=== PATIENT | male | born 1960 | race Caucasian/White ===

== ENCOUNTER 2024-06-04 00:17 | Inpatient (IN) | payer MEDICARE, SELFPAY ==
[2024-06-04] VITALS (21 sets, daily range): BP systolic 118–146; BP diastolic 78–100; PULSE 61–85; RESP 13–30; TEMP 35.7–36.9; O2SAT 78–100; BMI 31.8
--- NOTE | 2024-06-04 01:05 | EKG12_ITS ---
Test Reason : SOB Blood Pressure : / mmHG Vent. Rate : 069 BPM Atrial Rate : 069 BPM P-R Int : 152 ms QRS Dur : 092 ms QT Int : 440 ms P-R-T Axes : 002 070 -31 degrees QTc Int : 471 ms Normal sinus rhythm ST & T wave abnormality, consider inferior ischemia ST & T wave abnormality, consider anterolateral ischemia Prolonged QT Abnormal ECG Confirmed by TAZ KRAFT ([id number]), assistant film editor BARON IYER ([id number]) on 06/07/2024 8:22:11 AM Referred By: KWAME Confirmed By:TAZ KRAFT
--- NOTE | 2024-06-04 01:05 | EDS_ITS ---
HPI History of Present Illness Chief Complaint: Shortness of Breath Informant: patient Narrative Narrative: Patient has had dyspnea on exertion for couple months has been worsening he seen pulmonary doctor severely up for it, he has had a workup some of it has been at [place], he had a heart cath that did not show any acute, he had some stents placed in 2014, and tonight he was getting a sleep study as part of this workup, and during that he was sleeping and hypoxic, the microbiological laboratory technician woke him up from on oxygen and they were unable to get him above 80% on 5 L nasal cannula so he was sent here. The patient states he feels fine at rest, he has dyspnea with exe rtion without chest discomfort or syncope or palpitations or leg swelling or orthopnea. He is on no home oxygen. [facility] Medical History (Updated 06/04/24 @ 02:[address] Calros Welch MD) Pulmonary hypertension CAD (coronary artery disease) Home Medications ?Medication ?Instructions ?Recorded ?Last Taken ?Type aspirin 81 mg capsule 81 mg PO DAILY 06/04/24 Unknown History losartan 50 mg tablet 50 mg PO DAILY 06/04/24 Unknown History metformin 500 mg tablet,extended 500 mg PO DAILY 06/04/24 Unknown History release 24 hr metoprolol succinate 50 mg 50 mg PO DAILY 06/04/24 Unknown History tablet,extended release 24 hr rosuvastatin 20 mg tablet 20 mg PO DAILY 06/04/24 Unknown History sildenafil (pulm.hypertension) 20 20 mg PO TID 06/04/24 Unknown History mg tablet Allergy/AdvReac Type Severity Reaction Status Date / Time No Known Allergies Allergy Verified 06/04/24 00:22 Surgical History (Updated 06/04/24 @ 01:[address] Carlos Welch MD) Stented coronary artery Social History Smoking Status: Light Smoker (<10/day) ROS ROS ED Constitutional Constitutional ED: Denies chills or fever(s) Eyes Eyes: Denies change in vision or diplopia ENT ENT ED: Denies rhinorrhea or sore throat Cardiovascular Cardiovascular: Denies chest pain or palpitations Respiratory/Chest Respiratory/Chest: Reports dyspnea on exertion; Denies cough or dyspnea Gastrointestinal Gastrointestinal: Denies abdominal pain, diarrhea, nausea or vomiting Genitourinary Genitourinary ED: Denies dysuria or hematuria Musculoskeletal Musculoskeletal: Denies back pain or neck pain Integumentary Denies abscess or rash Neurologic Neurologic: Denies headache(s), paresthesias or weakness Psychiatric Psychiatric: Denies anxiety or suicidal thoughts EXAM Physical Exam Const Vital Signs: 06/04/24 00:18 06/04/24 00:20 06/04/24 01:20 Temperature 97.8 F Temperature Source Oral Pulse Rate 75 Respiratory Rate 30 H Respiratory Effort Non-Labored Respiratory Pattern Tachypnea Blood Pressure 140/89 H Blood Pressure Mean 106 Pulse Ox 88 94 Oxygen Delivery Method Nasal Cannula Nasal Cannula Nasal Cannula Oxygen Flow Rate (L/min) 5 5 5 06/04/24 01:20 06/04/24 01:20 06/04/24 02:00 Temperature 98.1 F 98 F Temperature Source Oral Oral Pulse Rate 85 66 Respiratory Rate 19 H 16 Respiratory Effort Respiratory Pattern Blood Pressure 127/78 H 125/83 H Blood Pressure Mean 94 97 Pulse Ox 78 95 94 Oxygen Delivery Method Room Air Nasal Cannula Nasal Cannula Oxygen Flow Rate (L/min) 5 Positive well nourished and well developed General Appearance ED: well developed and NAD HEENT Reports moist mucous membranes normocephalic and atraumatic Eyes PERRL and EOMs intact bilaterally Neck full ROM, supple and no JVD Resp normal respiratory effort and clear to auscultation bilaterally Cardio regular rate, regular rhythm and no murmurs GI non-tender and non-distended Auscultation: normoactive bowel sounds Palpation: soft Back/Spine no CVA tenderness General Back: other FROM Extremity normal to inspection General Extremety ED: Negative for edema, pulses abnormal or tenderness General Extremity: Negative for edema or pulses abnormal Neuro oriented x3, CN's II-XII intact bilaterally and no sensory deficits noted Sensorium / Orientation: awake and alert Motor Exam: strength 5/5 throughout Skin no rashes or lesions noted and no wounds MDM MDM MDM Narrative Medical decision making narrative: Patient was sent with an outpatient note that shows that he had a VQ scan that was normal perfusion April 27, CT scan showing distal pulmonary arteries enlarged and what appears to be significant fibrosis and may be some emphysematous blebs, as well as pulmonary function test with FVC 88% of predicted FEV1 89% of predicted, this was in April 2024, his proBNP was 4391. According to this, pulmonary favoring pulmonary fibrosis, and suspecting obstructive sleep apnea hence the study he was having tonight. He also had an echocardiogram in April 2024 that showed an ejection fraction of 39% and a PA estimated pressure of 86 and diastolic dysfunction. Chest x-ray shows what appear to be chronic abnormalities 2 views on my interpretation, I do not think this represents pneumonia given the history and the lack of symptoms acutely. It is possible this could be cardiogenic pulmonary edema but he does not have symptoms of that necessarily. I turned his oxygen off in order to assess for hypoxemia, he was wide-awake without dyspnea, desatted down to 79% so we put him back on 4-5 L nasal cannula. He is at 94% and stable. I do not think we need to retest him for pulmonary embolus which is already been ruled out in this case, his BNP is elevated. Discussed with hospitalist for admission. History & Record Review Additional record(s) reviewed:: Prior outpatient record (Outpatient note from 05/13/2024 see above) Lab Data Attestation: I reviewed the patient's lab results. Labs: Laboratory Results - last 24 hr 06/04/24 01:28 WBC 6.7 RBC 5.25 Hgb 16.3 Hct 48.3 MCV 92.0 MCH 31.0 MCHC 33.7 RDW Std Deviation 45.4 H RDW Coeff of Abilio 13.4 Plt Count 268 MPV 9.9 Immature Gran % (Auto) 0.300 Neut % (Auto) 60.6 Lymph % (Auto) 26.8 [place] % (Auto) 6.7 Eos % (Auto) 4.0 Baso % (Auto) 1.6 H Absolute Neuts (auto) 4.1 Absolute Lymphs (auto) 1.80 Nucleated RBC % 0 Sodium 136 Potassium 5.2 H Chloride 111 H Carbon Dioxide 19.0 L Anion Gap 6 BUN 18 Creatinine 0.90 Est GFR (MDRD) Af Amer 109 Est GFR (MDRD) Non-Af 90 BUN/Creatinine Ratio 20.0 Glucose 90 Calcium 9.0 Troponin I High Sens 19 B-Natriuretic Peptide 321.5 H Rhythm Strip Rhythm Strip: Sinus Rhythm Rate: 70 Ectopy: None EKG Initial EKG: Attestation: I personally reviewed and interpreted this EKG as follows: Interpretation: Sinus Rhythm, No Acute Injury Pattern and Inverted T-Waves (ant-sept, inferior) Prior EKG tracings: not available for review Prior: No Prior Management Discussion w/another healthcare provider: Hospitalist and PCP (Pulmonary Dr. Billingsley prior to patient's arrival) Discharge Plan Dx/Rx/DC Orders Clinical Impression: Hypoxemia, Cardiomyopathy, Pulmonary hypertension Disposition Disposition: Acute Care Hospital [facility]
[2024-06-04 01:35] LABS: Absolute Neutrophil Count 4.1 X10^3/uL (2.0-7.7); Basophil# 0.11 X10^3/uL; Basophil% 1.6 % (0-1); Eosinophil# 0.27 X10^3/uL; Hematocrit 48.3 % (40-54); Hemoglobin 16.3 g/dL (13.0-16.5); Lymphocyte % 26.8 % (19-41); Mean Corp Hgb Conc 33.7 g/dL (32-36); Mean Platelet Vol. 9.9 fl (6.2-12.0); Monocyte# 0.45 X10^3/uL; Monocyte% 6.7 % (0-10); NRBC Flagged by Analyzer 0 % (0-5); Neutrophil # 4.06 X10^3/uL (2.7-7.7); Neutrophil % 60.6 % (47-70); Platelet Count 268 K/mm3 (150-450); RBC Distribution Width CV 13.4 % (11.6-14.6); RBC Distribution Width SD 45.4 fl (35.1-43.9); Red Blood Count 5.25 M/mm3 (4.6-6.2); White Blood Count 6.7 K/mm3 (4.4-11.0)
--- NOTE | 2024-06-04 01:50 | RAD_ITS ---
EXAM: XR CHEST, 2 VIEWS CLINICAL INDICATION: sob TECHNIQUE: Frontal and lateral views of the chest. COMPARISON: No relevant prior studies available. FINDINGS: LUNGS AND PLEURAL SPACES: Patchy bilateral airspace disease. No pneumothorax. No effusion. HEART: Unremarkable. Cardiac silhouette not enlarged. MEDIASTINUM: Central airways and mediastinal contour are unremarkable. BONES/JOINTS: Degenerative changes of the spine. No acute fracture. SOFT TISSUES: Unremarkable. RAD/Chest PA and Lateral IMPRESSION: Patchy bilateral airspace disease. Findings may indicate pneumonia. Electronically Signed: Shola Kyle MD at 3:19 EDT ,
[2024-06-04 01:57] LABS: BNP,B-Type NATRIURETIC PEPTIDE 321.5 pg/mL (0-100)
[2024-06-04 02:00] LABS: Anion Gap 6 (5-15); BUN 18 mg/dL (7-18); Chloride 111 mmol/L (98-107); EST Glomerular Filtration Rate 90 mL/min (>60); Est Glom Filt Rate - Afr Amer 109 mL/min (>60); Glucose 90 mg/dL (74-106); Potassium 5.2 mmol/L (3.5-5.1); Sodium Level 136 mmol/L (136-145); Troponin-I HS 19 pg/mL (3.0-78.0)
--- NOTE | 2024-06-04 02:47 | PCM.HP.STD ---
[facility] - General General Date of Admission: 06/04/24 Date of Service: 06/04/24 Chief Complaint: Severe SOB and Hypoxia during Sleep Study. HPI Narrative MISAEL CERVANTES, is a 64 M with a past medical history of essential hypertension, hyperlipidemia, DM-2; of unknown control of metformin, history of tobacco abuse, CAD; s/p stents (2014), pulmonary hypertension; on sildenafil TID and history of suspected pulmonary fibrosis followed by Dr. Ohara of pulmonology with an unremarkable ventilation/perfusion scan done on April 27, [address] scan of the chest that revealed distal pulmonary artery enlargement with significant fibrosis and what may be some emphysematous blebs as well as pulmonary function test with FVC 88% of predicted and FEV-1 89% of predicted with a recent echocardiogram that revealed LVEF ~39% and the pulmonary artery estimated pressure of 86 mmHg with diastolic dysfunction (all in April 2024) who was undergoing a sleep study when he was noted to have an oxygen saturation in the ~79% range in spite of being on 5 L nasal cannula so he was emergently sent into the [facility] ER for further evaluation treatment. Mr. Cervantes reports his symptoms began ~2 to 3 months prior to admission as he was undergoing extensive workup for his progressively worsening dyspnea on exertion - with most of his workup apparently done at [place]. He states that he feels fine at rest but then quickly develops dyspnea on exertion without chest discomfort, syncope, palpitations or lower extremity edema. He denies being on home oxygen but he does admit to continued light tobacco abuse with patient smoking ~1/2 pack/day. He also admits to significantly increased free-water intake of the past 3-4 days due to the heat with a corresponding worsening of his MIRANDA. He is now saturating at ~95% on 5 L nasal cannula. In the ER he was noted to have an elevated BNP of 321.5 pg/mL present on admission consistent with AE of chronic systolic CHF; with LVEF ~39% with corresponding clinical evidence of acute respiratory insufficiency likely triggered at least in part by orthopnea during sleep study with mild hyperkalemia of 5.2 mmol/L present on admission in the setting of ongoing tobacco abuse and he was then admitted to the PCU for ongoing care for his stay that is expected to extend beyond 2 midnights. [facility] Medical History (Updated 06/04/24 @ 03:[address] Jon Rojas DO) Pulmonary hypertension CAD (coronary artery disease) Home Medications ?Medication ?Instructions ?Recorded ?Last Taken ?Type aspirin 81 mg capsule 81 mg PO DAILY 06/04/24 Unknown History losartan 50 mg tablet 50 mg PO DAILY 06/04/24 Unknown History metformin 500 mg tablet,extended 500 mg PO DAILY 06/04/24 Unknown History release 24 hr metoprolol succinate 50 mg 50 mg PO DAILY 06/04/24 Unknown History tablet,extended release 24 hr rosuvastatin 20 mg tablet 20 mg PO DAILY 06/04/24 Unknown History sildenafil (pulm.hypertension) 20 20 mg PO TID 06/04/24 Unknown History mg tablet Allergy/AdvReac Type Severity Reaction Status Date / Time No Known Allergies Allergy Verified 06/04/24 00:22 Surgical History (Updated 06/04/24 @ 03:[address] Jon Rojas DO) Stented coronary artery Social History Smoking Status: Light Smoker (<10/day) ROS ROS Narrative Review of Systems: Constitutional: Patient denies fever, chills, weight loss/gain. Eyes: Patient denies changes in vision or discharge from eyes. ENT: Patient denies runny nose, sore throat or ear pain CV: Patient denies chest pain, palpitations or heart racing. Resp: Patient admits to dyspnea on exertion that is progressively worsening over the past few months as per HPI. He denies cough. GI: Patient denies abdominal pain, nausea, vomiting, diarrhea or constipation. : Patient denies dysuria, hematuria urinary hesitancy/frequency. MSK: Patient denies neck pain or back pain. Skin: Patient denies rash, abscess or jaundice. Psych: Patient denies symptoms of uncontrolled depression or anxiety. Neuro: Patient denies headache, paresthesias or focal neurologic deficits. Allergy: Patient denies lip swelling, tongue swelling or urticaria. Hematology: Patient denies easy bleeding or easy bruisability. Endocrinology: Patient denies polyuria, polydipsia or polyphagia. 14 point review of systems negative except for positives noted in HPI. Vital Signs Vital Signs Vital Signs: 06/04/24 00:18 06/04/24 00:20 06/04/24 01:20 Temperature 97.8 F Temperature Source Oral Pulse Rate 75 Respiratory Rate 30 H Respiratory Effort Non-Labored Respiratory Pattern Tachypnea Blood Pressure 140/89 H Blood Pressure Mean 106 Pulse Ox 88 94 Oxygen Delivery Method Nasal Cannula Nasal Cannula Nasal Cannula Oxygen Flow Rate (L/min) 5 5 5 06/04/24 01:20 06/04/24 01:20 06/04/24 02:00 Temperature 98.1 F 98 F Temperature Source Oral Oral Pulse Rate 85 66 Respiratory Rate 19 H 16 Respiratory Effort Respiratory Pattern Blood Pressure 127/78 H 125/83 H Blood Pressure Mean 94 97 Pulse Ox 78 95 94 Oxygen Delivery Method Room Air Nasal Cannula Nasal Cannula Oxygen Flow Rate (L/min) 5 Physical Exam Const alert, oriented x3, no apparent distress and average body habitus General Appearance: cooperative HEENT normocephalic, head/scalp atraumatic, hearing grossly normal bilaterally and moist oral mucous membranes Eyes PERRL and EOMs intact bilaterally Neck no lymphadenopathy and supple Resp normal respiratory effort, no retractions, no use of accessory muscles and clear to auscultation bilaterally Cardio regular rate and regular rhythm GI normal to inspection, nondistended, normoactive bowel sounds, soft to palpation, non-tender and non-distended Extremity normal to inspection, full ROM and no clubbing, cyanosis or edema Skin Skin Narrative: Patient has evidence of rash, abscess or jaundice. Neuro oriented x3, CN's II-XII intact bilaterally, moves all extremities and no focal motor deficits Sensorium / Orientation: awake, alert, oriented to person, oriented to place and oriented to time Speech: speech normal Motor Exam: strength 5/5 throughout Psych affect normal Results Medical Records Data Attestation: I reviewed the patient's medical records Lab / Micro Data Attestation: I reviewed the patient's lab results. 06/04/24 01:28 06/04/24 01:28 Labs: Laboratory Results - last 24 hr 06/04/24 01:28: WBC 6.7, RBC 5.25, Hgb 16.3, Hct 48.3, MCV 92.0, MCH 31.0, MCHC 33.7, RDW Std Deviation 45.4 H, RDW Coeff of Abilio 13.4, Plt Count 268, MPV 9.9, Immature Gran % (Auto) 0.300, Neut % (Auto) 60.6, Lymph % (Auto) 26.8, [place] % (Auto) 6.7, Eos % (Auto) 4.0, Baso % (Auto) 1.6 H, Absolute Neuts (auto) 4.1, Absolute Lymphs (auto) 1.80, Nucleated RBC % 0, Sodium 136, Potassium 5.2 H, Chloride 111 H, Carbon Dioxide 19.0 L, Anion Gap 6, BUN 18, Creatinine 0.90, Est GFR (MDRD) Af Amer 109, Est GFR (MDRD) Non-Af 90, BUN/Creatinine Ratio 20.0, Glucose 90, Calcium 9.0, Troponin I High Sens 19, B-Natriuretic Peptide 321.5 H Rhythm Strip Rhythm Strip: Sinus Rhythm Rate: 70 Ectopy: None Imaging [facility] Imaging Services [address] [place], [place] [id number] Chest PA and Lateral MR#: [id number] Acct: [id number] Name: MISAEL CERVANTES Rep #: [id number] : 1960 M 64 From: Shola Kyle MD PCP: AURE Ortega Status: REG ER Study: Chest PA and Lateral Date of Exam: 06/04/24 Exam# [id number] Ordering Dr: Carlos Welch MD EXAM: XR CHEST, 2 VIEWS CLINICAL INDICATION: sob TECHNIQUE: Frontal and lateral views of the chest. COMPARISON: No relevant prior studies available. FINDINGS: LUNGS AND PLEURAL SPACES: Patchy bilateral airspace disease. No pneumothorax. No effusion. HEART: Unremarkable. Cardiac silhouette not enlarged. MEDIASTINUM: Central airways and mediastinal contour are unremarkable. BONES/JOINTS: Degenerative changes of the spine. No acute fracture. SOFT TISSUES: Unremarkable. RAD/Chest PA and Lateral IMPRESSION: Patchy bilateral airspace disease. Findings may indicate pneumonia. Electronically Signed: Shola Kyle MD at 3:19 EDT , CC: AURE [place]; Dr. Carlos Welch MD ~ Tile Sorter: Signed Assessment & Plan Assessment/Plan (1) Acute exacerbation of chronic heart failure: (2) Pulmonary hypertension: (3) Respiratory insufficiency: (4) Hypoxemia: (5) Cardiomyopathy: QUALIFIERS: Cardiomyopathy type: unspecified Qualified Code(s): I42.9 - Cardiomyopathy, unspecified (6) CAD (coronary artery disease): QUALIFIERS: Associated angina: without angina Coronary Disease-Associated Artery/Lesion type: [place] artery [place] vs. transplanted heart: [place] heart Qualified Code(s): I25.10 - Atherosclerotic heart disease of [place] coronary artery without angina pectoris (7) Stented coronary artery: PLAN: Plan 1. AE of chronic systolic and diastolic CHF; with LVEF ~39% with an elevated BNP of 321.5 pg/mL present on admission likely due to orthopnea during sleep study triggered by recent increased free water intake - Admit to PCU. Start Lasix 40 mg IV daily plus supplemental potassium and magnesium. Continue losartan and metoprolol as previous. Serial troponin. Check echocardiogram to evaluate LVEF. Fluid restrict to ~1.5 L/day. 2. Acute respiratory insufficiency due to #1 in the setting of ongoing tobacco abuse complicating #1 - Continue supplemental oxygen for now and wean as tolerated. Tobacco cessation will be strongly encouraged with nicotine patch offered to control cravings. Patient may need to be discharged on supplemental oxygen. 3. Mild hyperkalemia of 5.2 mmol/L present on admission - Patient will be treated with IV Lasix for #1. Recheck level in a.m. to ensure improvement. 4. Pulmonary hypertension; on sildenafil TID and history of suspected pulmonary fibrosis followed by Dr. Ohara of pulmonology with an unremarkable ventilation/perfusion scan done on April 27, [address] scan of the chest that revealed distal pulmonary artery enlargement with significant fibrosis and what may be some emphysematous blebs as well as pulmonary function test with FVC 88% of predicted and FEV-1 89% of predicted with a recent echocardiogram that revealed LVEF ~39% and the pulmonary artery estimated pressure of 86 mmHg with diastolic dysfunction (all in April 2024) compounding #1 - #3 - Noted. 5. Essential hypertension - Continue home regimen as previous plus give IV hydralazine as needed for systolic blood pressure greater than 160 mmHg. 6. Hyperlipidemia - Resume statin as previous. 7. DM-2; of unknown control of metformin - ADA diet. FSBS q. AC/HS plus SSI. Check HgbA1c to objectively evaluate quality of diabetic control. 8. CAD; s/p stents (2014) - Noted. Resume BASA and statin as previous. 9. DVT prophylaxis - Lovenox 40 mg sq daily plus SCD's. Total time: Approximately 55 minutes. Charges/Coding Visit Charges Inpatient E&M: 66838 Init Hosp L2
--- NOTE | 2024-06-04 03:21 | ECHOD_ITS ---
Reason For Study: CHF Procedure This was a 2D Doppler, Color Flow transthoracic echocardiogram. Exam performed portable in patient room. RV strain done. Left Ventricle Normal left ventricle. The estimated ejection fraction is 55-60 %. Right Ventricle Moderately dilated right ventricle. Moderately decreased right ventricular systolic function. Atria Normal left atrium. The right atrium is moderately enlarged. Mitral Valve The mitral valve is structurally normal. No prolapse or stenosis seen. No mitral valve insufficiency. Tricuspid Valve Normal tricuspid valve. Mild tricuspid valve insufficiency. Aortic Valve Trisinus/trileaflet aortic valve. No aortic valve insufficiency. Pulmonic Valve The pulmonic valve is not well visualized. Great Vessels Normal aortic root. Pericardium/Pleural No pericardial effusion. MMode/2D Measurements & Calculations LVIDd: 4.6 cm IVSd: 0.94 cm Ao root diam: 3.5 cm LVIDs: 3.2 cm LVPWd: 0.89 cm LA dimension: 4.3 cm RVDd: 5.1 cm FS: 29.0 % LAV(MOD-bp): 61.8 ml LVAd ap4: 29.1 cm2 SV(MOD-sp4): 61.6 ml LAV(MOD-bp) Indexed: 27.1 ml/m2 LVLd ap4: 8.1 cm LAV(MOD-sp2): 60.6 ml EDV(MOD-sp4): 90.7 ml LAV(MOD-sp4): 52.1 ml EDV(sp4-el): 88.6 ml LVAs ap4: 15.2 cm2 LVLs ap4: 6.7 cm ESV(MOD-sp4): 29.1 ml ESV(sp4-el): 29.4 ml EF(MOD-sp4): 67.9 % EF(sp4-el): 66.8 % SV(sp4-el): 59.2 ml LA A4 area: 20.9 cm2 RA A4 area: 16.7 cm2 TAPSE: 1.7 cm Time Measurements MV dec time: 0.38 sec Doppler Measurements & Calculations MV E max marvin: 63.0 cm/sec Lat Peak E' Marvin: 9.8 cm/sec Med Peak E' Marvin: 5.8 cm/sec MV A max marvin: 89.3 cm/sec E/E' lat: 6.4 E/E' med: 10.9 MV E/A: 0.71 MV V2 max: 94.6 cm/sec MV P1/2t max marvin: 69.6 cm/sec Ao V2 max: 153.1 cm/sec MV max P.6 mmHg MV P1/2t: 123.6 msec Ao max P.4 mmHg MV V2 mean: 49.9 cm/sec MV dec slope: 165.0 cm/sec2 Ao V2 mean: 105.3 cm/sec MV mean P.2 mmHg Ao mean P.0 mmHg MV V2 VTI: 28.7 cm MVA(P1/2t): 1.8 cm2 Ao V2 VTI: 25.6 cm AV (velocity ratio): 0.59 LV V1 max: 92.8 cm/sec PA V2 max: 75.9 cm/sec TR max marvin: 412.8 cm/sec LV V1 max P.5 mmHg TR max P.2 mmHg LV V1 mean P.9 mmHg LV V1 mean: 65.0 cm/sec LV V1 VTI: 15.2 cm ECHO/Echo Complete Interpretation Summary The estimated ejection fraction is 55-60 %. Normal LV systolic function Moderately enlarged RV Mild TR Grade 2 diastolic dysfunction No prior echocardiogram to compare. Ordering Physician: Jon Rojas Performed By: Ian Landeros RCS
[2024-06-04 03:53] LABS: Allen Test Positive; Base Excess -6 mmol/L (-2 to +2); Bicarbonate 17.9 mmol/L (22-26); Blood Gas Specimen Type ART; Mode Not entered; O2 Delivery Device Not entered; PO2 43 mmHG (75-100); SITE R Radial; SO2 82 % (95-99); Total Carbon Dioxide 19 mmol/L; pCO2 25.6 mmHg (35-45); pH 7.45 (7.35-7.45)
[2024-06-04] MEDS: SILDENAFIL CITRATE 20 MG TABLET PO ×3 (05:48→21:35)
[2024-06-04 06:56] LABS: Troponin-I HS 16 pg/mL (3.0-78.0)
[2024-06-04 07:18] LABS: Phosphorus 3.7 mg/dL (2.5-4.9)
[2024-06-04] MEDS: Losartan Potassium 50 MG Tablet PO (09:34)
[2024-06-04] MEDS: Metoprolol(XL)Succ 50 MG Tablet PO (09:34)
[2024-06-04] MEDS: Magnesium Chloride 64 MG Delay Rel.Tablet 128 MG PO ×2 (09:34→21:35)
[2024-06-04] MEDS: Furosemide 40 MG/4 ML Vial IV ×2 (09:35→16:44)
[2024-06-04] MEDS: Aspirin 81 MG TAB.CHEW PO (09:35)
[2024-06-04] MEDS: Enoxaparin 40 MG/0.4 ML Syringe SC (09:44)
[2024-06-04] MEDS: 0.9% Saline Lock 10 ML Syringe IV ×2 (09:44→16:45)
--- NOTE | 2024-06-04 09:55 | PN.HOSP_ITS ---
Reason for Visit Reason for Visit: Diagnoses Atherosclerotic heart disease of [place] coronary artery without angina pectoris (06/04/24) Pulmonary hypertension, unspecified (06/04/24) Cardiomyopathy, unspecified (06/04/24) Heart failure, unspecified (06/04/24) Other abnormalities of breathing (06/04/24) Hypoxemia (06/04/24) Presence of coronary angioplasty implant and graft (06/04/24) Subjective Subjective Breathing well. Denies LE edema. Objective Data Objective Data Vital Signs: Vital Signs Temp Pulse Resp BP Pulse Ox O2 Del Method O2 Flow Rate 36.5 C L 61 18 123/91 H 93 Nasal Cannula 5 06/04/24 09:31 06/04/24 09:34 06/04/24 09:31 06/04/24 09:31 06/04/24 09:31 06/04/24 09:31 06/04/24 09:31 Oxygen Flow Rate (L/min) 5 Oxygen Delivery Method Nasal Cannula Weight: 106.6 kg Body Mass Index (BMI) 31.8 Lab / Micro Data 06/04/24 01:28 06/04/24 01:28 Labs: Laboratory Results - last 24 hr 06/04/24 01:28: WBC 6.7, RBC 5.25, Hgb 16.3, Hct 48.3, MCV 92.0, MCH 31.0, MCHC 33.7, RDW Std Deviation 45.4 H, RDW Coeff of Abilio 13.4, Plt Count 268, MPV 9.9, Immature Gran % (Auto) 0.300, Neut % (Auto) 60.6, Lymph % (Auto) 26.8, [place] % (Auto) 6.7, Eos % (Auto) 4.0, Baso % (Auto) 1.6 H, Absolute Neuts (auto) 4.1, Absolute Lymphs (auto) 1.80, Nucleated RBC % 0, Sodium 136, Potassium 5.2 H, C hloride 111 H, Carbon Dioxide 19.0 L, Anion Gap 6, BUN 18, Creatinine 0.90, Est GFR (MDRD) Af Amer 109, Est GFR (MDRD) Non-Af 90, BUN/Creatinine Ratio 20.0, Glucose 90, Calcium 9.0, Troponin I High Sens 19, B-Natriuretic Peptide 321.5 H 06/04/24 05:54: Phosphorus 3.7, Magnesium 2.0, Troponin I High Sens 16, TSH 1.720 ABG Data ABG results: ABG 06/04/24 03:48 Specimen Type ART Sample Site R Radial pH 7.45 Bicarbonate Actual 17.9 L Total CO2 19 Base Excess -6 L O2 Saturation 82 L O2 % 21.0 ABG pCO2 25.6 L ABG pO2 43 L [place] Test Positive O2 Delivery Device Not entered Vent Mode Not entered Radiography Diagnostic Testing: Radiology Impression Chest X-Ray 06/04/24 01:50 IMPRESSION: Patchy bilateral airspace disease. Findings may indicate pneumonia. Electronically Signed: Shola Kyle MD at 3:19 EDT , Rhythm Strip Rhythm Strip: Sinus Rhythm Rate: 70 Ectopy: None Physical Exam Const alert and no apparent distress HEENT head/scalp atraumatic and moist oral mucous membranes Resp normal respiratory effort and no retractions Resp Narrative: bibasilar crakcles. Cardio regular rate, regular rhythm, S1 normal heart sound and S2 normal heart sound GI normal to inspection, nondistended, normoactive bowel sounds, soft to palpation, non-tender and non-distended Extremity normal to inspection, full ROM and no clubbing, cyanosis or edema Neuro Sensorium / Orientation: awake and alert Assessment & Plan Assessment/Plan (1) Acute exacerbation of chronic heart failure: (2) Pulmonary hypertension: (3) Respiratory insufficiency: (4) Hypoxemia: (5) Cardiomyopathy: QUALIFIERS: Cardiomyopathy type: unspecified Qualified Code(s): I 42.9 - Cardiomyopathy, unspecified (6) CAD (coronary artery disease): QUALIFIERS: Associated angina: without angina Coronary Disease- Associated Artery/Lesion type: [place] artery [place] vs. transplanted heart: n ative heart Qualified Code(s): I25.10 - Atherosclerotic heart disease of [place] coronary artery without angina pectoris (7) Stented coronary artery: PLAN: Plan Acute on chronic HFrEF * Chest x-ray shows pulmonary vascular congestion, though the report mentions infiltrate. With an elevated BNP of 321.5 normal white count suspect more due to heart failure rather than underlying infectious process. * Continue with IV furosemide 40 mg twice daily. Continue with losartan and metoprolol succinate. Fluid restrict 1.5 L/day * Complicated by group 2 or 3 pulmonary hypertension. Continue with sildenafil. Chronic conditions * Group 2 or 3 pulmonary hypertension; on sildenafil TID patient sees pulmonary for pulmonary fibrosis. Patient require follow-up as outpatient. * Essential hypertension - Continue home regimen as previous plus give IV hydralazine as needed for systolic blood pressure greater than 160 mmHg. * Hyperlipidemia - Resume statin * DM-2; of unknown control of metformin - ADA diet. FSBS q. AC/HS plus SSI. * CAD; s/p stents (2014) - Noted. Resume BASA and statin as previous. DVT prophylaxis - Lovenox 40 mg sq daily plus SCD's. Wean oxygen as tolerated. Charges/Coding Procedures Hospitalists Procedures: Other Procedure - See Report (Nonbillable rounding as patient was admitted after midnight.)
--- NOTE | 2024-06-04 12:15 | CASEMGMT ---
SARANYA GEE Face to Face with patient for initial transition planning/care coordination assessment. RN CM introduced self and role at [facility]. Patient lying in bed, alert and oriented, son and significant other at bedside. Patient willing to participate in assessment and is able to answer all questions appropriately. Care providers, pharmacy, and demographics verified. Strata: 1 PCP: Timo CAMPBELL Specialists: Julián, slp teacher; Jose Cruz, individualized education plan aide Preferred Pharmacy: [facility] Insurance: [facility] Prescription Benefit: yes Living Will/HPOA: none LNOK: son, significant other Living Arrangements: Patient lives with significant other in a single story home with 3 steps to enter. Patient is independent at home. Transportation: self, significant other DME/HHC: No DME in the home. No previous HHC or SNF. Patient currently on oxygen, will monitor for home oxygen at discharge. DME agencies reviewed with patient and prefers [employer] for DME. Green sheet placed on chart for possible home oxygen Patient wishes to discharge home, denies need for home health at this time. Patient states he has no further needs or concerns at this time. CM to follow for discharge planning needs that may arise. Disposition Plan: Patient to discharge home with family support and follow-up plans in place. Monitor for home oxygen. Luz BRADLEY, RN, CM
[2024-06-04] MEDS: Atorvastatin Calcium 40 MG Tablet PO (21:35)
--- NOTE | 2024-06-04 21:48 | CPS ---
Patient has Reynaudryan, use ear lobe for accurate SpO2 reading
[2024-06-05 03:15] VITALS: BP 95/70; PULSE 64; RESP 18; TEMP 36.6; O2SAT 94
[2024-06-05 03:59] VITALS: BMI 31.7
[2024-06-05 04:57] LABS: Absolute Lymphocyte Count 1.67 X10^3/uL (0.83-4.51); Absolute Neutrophil Count 4.6 X10^3/uL (2.0-7.7); Basophil# 0.15 X10^3/uL; Eosinophil# 0.34 X10^3/uL; Eosinophils% 4.6 % (0-5); Hematocrit 51.7 % (40-54); Hemoglobin 17.1 g/dL (13.0-16.5); Lymphocyte # 1.67 X10^3/ul (0.83-4.51); Lymphocyte % 22.7 % (19-41); Mean Corp Hgb Conc 33.1 g/dL (32-36); Mean Corpuscular Hgb 30.8 pg (27.0-32.0); Mean Platelet Vol. 9.7 fl (6.2-12.0); Monocyte# 0.57 X10^3/uL; Monocyte% 7.7 % (0-10); NRBC Flagged by Analyzer 0 % (0-5); Neutrophil % 62.6 % (47-70); Platelet Count 259 K/mm3 (150-450); RBC Distribution Width CV 13.5 % (11.6-14.6); RBC Distribution Width SD 45.7 fl (35.1-43.9); Red Blood Count 5.56 M/mm3 (4.6-6.2); White Blood Count 7.4 K/mm3 (4.4-11.0)
[2024-06-05 05:22] LABS: ALB/GLOB Ratio 0.6 RATIO (0.9-2.4); AST(SGOT) 20 U/L (15-37); Alanine Aminotransfer ALT/SGPT 15 U/L (16-61); Albumin, Serum 3.3 g/dL (3.2-5.0); Alkaline Phosphatase 67 U/L (45-117); Anion Gap 9 (5-15); BUN 21 mg/dL (7-18); BUN/Creat Ratio 21.1 RATIO (10-20); Calcium,Total 9.9 mg/dL (8.5-10.1); Chloride 106 mmol/L (98-107); Creatinine, Serum 0.99 mg/dL (0.70-1.30); EST Glomerular Filtration Rate 80 mL/min (>60); Est Glom Filt Rate - Afr Amer 97 mL/min (>60); Estimated Creatinine Clearance 93.69 ml/min; Globulin 5.4 g/dL (2.2-4.2); Glucose 136 mg/dL (74-106); Potassium 3.6 mmol/L (3.5-5.1); Protein, Total 8.7 g/dL (6.4-8.2); Sodium Level 138 mmol/L (136-145)
--- NOTE | 2024-06-05 05:45 | RAD_ITS ---
INDICATION: AE CHF. EXAMINATION/TECHNIQUE: X-RAY - XR Chest 1 View COMPARISON: Prior study dated: 06/04/2024 FINDINGS: LINES/DEVICES: None. LUNGS: Bilateral infiltrates/edema are again seen essentially unchanged since prior exam. No evidence of pleural effusions. MEDIASTINUM AND CARDIOVASCULAR STRUCTURES: Cardiac silhouette not enlarged. Central airways and mediastinal contour are unremarkable. BONES AND SOFT TISSUES: Unremarkable. RAD/Chest 1 View (Portable) IMPRESSION: No significant change Electronically Signed: Nickolas Rojas MD at 8:39 EDT ,
[2024-06-05] MEDS: SILDENAFIL CITRATE 20 MG TABLET PO (06:09)
[2024-06-05 09:02] VITALS: BP 119/86; PULSE 67; RESP 20; TEMP 36.8; O2SAT 100
[2024-06-05] MEDS: Aspirin 81 MG TAB.CHEW PO (09:06)
[2024-06-05] MEDS: Magnesium Chloride 64 MG Delay Rel.Tablet 128 MG PO (09:07)
[2024-06-05 09:08] VITALS: PULSE 67
[2024-06-05] MEDS: Metoprolol(XL)Succ 50 MG Tablet PO (09:08)
[2024-06-05] MEDS: Losartan Potassium 50 MG Tablet PO (09:08)
[2024-06-05] MEDS: Furosemide 40 MG/4 ML Vial IV (09:09)
[2024-06-05] MEDS: Enoxaparin 40 MG/0.4 ML Syringe SC (09:09)
--- NOTE | 2024-06-05 09:23 | PCM.PN.HOSP ---
Reason for Visit Reason for Visit: Diagnoses Atherosclerotic heart disease of [place] coronary artery without angina pectoris (06/04/24) Pulmonary hypertension, unspecified (06/04/24) Cardiomyopathy, unspecified (06/04/24) Heart failure, unspecified (06/04/24) Other abnormalities of breathing (06/04/24) Hypoxemia (06/04/24) Presence of coronary angioplasty implant and graft (06/04/24) Subjective Subjective Breathing well. Noted that his oxygen dropped with activity today. Stated that he recovered quickly. Objective Data Objective Data Vital Signs: Vital Signs Temp Pulse Resp BP Pulse Ox O2 Del Method O2 Flow Rate 36.8 C 67 20 H 119/86 H 100 Nasal Cannula 2 06/05/24 09:02 06/05/24 09:08 06/05/24 09:02 06/05/24 09:02 06/05/24 09:02 06/05/24 09:02 06/05/24 09:02 FiO2 2 06/04/24 21:16 Oxygen Flow Rate (L/min) 2 Oxygen Delivery Method Nasal Cannula Weight: 106.2 kg Body Mass Index (BMI) 31.7 Intake & Output: Intake and Output for Last 24 Hours 06/03/24 06/04/24 06/05/24 23:59 23:59 23:59 Intake Total 920 / 920 Output Total 2450 / 2450 0 / 0 Balance -1530 / -1530 0 / 0 Lab / Micro Data 06/05/24 04:43 06/05/24 04:43 Labs: Laboratory Results - last 24 hr 06/05/24 04:43: WBC 7.4, RBC 5.56, Hgb 17.1 H, Hct 51.7, MCV 93.0, MCH 30.8, MCHC 33.1, RDW Std Deviation 45.7 H, RDW Coeff of Abilio 13.5, Plt Count 259, MPV 9.7, Immature Gran % (Auto) 0.400, Neut % (Auto) 62.6, Lymph % (Auto) 22.7, [place] % (Auto) 7.7, Eos % (Auto) 4.6, Baso % (Auto) 2.0 H, Absolute Neuts (auto) 4.6, Absolute Lymphs (auto) 1.67, Nucleated RBC % 0, Sodium 138, Potassium 3.6, Chloride 106, Carbon Dioxide 23.0, Anion Gap 9, BUN 21 H, Creatinine 0.99, Estim Creat Clear Calc 93.69, Est GFR (MDRD) Af Amer 97, Est GFR (MDRD) Non-Af 80, BUN/Creatinine Ratio 21.1 H, Glucose 136 H, Calcium 9.9, Total Bilirubin 1.00, AST 20, ALT 15 L, Alkaline Phosphatase 67, Total Protein 8.7 H, Albumin 3.3, Globulin 5.4 H, Albumin/Globulin Ratio 0.6 L Radiography Diagnostic Testing: Radiology Impression Echocardiogram 06/04/24 03:21 Interpretation Summary The estimated ejection fraction is 55-60 %. Normal LV systolic function Moderately enlarged RV Mild TR Grade 2 diastolic dysfunction No prior echocardiogram to compare. Ordering Physician: Jon Rojas Performed By: Ian Landeros RCS Chest X-Ray 06/05/24 05:45 IMPRESSION: No significant change Electronically Signed: Nickolas Rojas MD at 8:39 EDT Reading Location ID and State: [address] [place] [address] Tel , Service support , Rhythm Strip Rhythm Strip: Sinus Rhythm Rate: 70 Ectopy: None Physical Exam Const alert and no apparent distress HEENT head/scalp atraumatic and moist oral mucous membranes Resp normal respiratory effort and no retractions Cardio regular rate, regular rhythm, S1 normal heart sound and S2 normal heart sound GI normal to inspection, nondistended, normoactive bowel sounds, soft to palpation, non-tender and non-distended Neuro Sensorium / Orientation: awake Assessment & Plan Assessment/Plan (1) Acute exacerbation of chronic heart failure: (2) Pulmonary hypertension: (3) Respiratory insufficiency: (4) Hypoxemia: (5) Cardiomyopathy: QUALIFIERS: Cardiomyopathy type: unspecified Qualified Code(s): I42.9 - Cardiomyopathy, unspecified (6) CAD (coronary artery disease): QUALIFIERS: Associated angina: without angina Coronary Disease-Associated Artery/Lesion type: [place] artery [place] vs. transplanted heart: [place] heart Qualified Code(s): I25.10 - Atherosclerotic heart disease of [place] coronary artery without angina pectoris (7) Stented coronary artery: PLAN: Plan Acute on chronic HFrEF Chest x-ray shows pulmonary vascular congestion, though the report mentions infiltrate. With an elevated BNP of 321.5 normal white count suspect more due to heart failure rather than underlying infectious process. Continue with IV furosemide 40 mg twice daily. Continue with losartan and metoprolol succinate. Fluid restrict 1.5 L/day Complicated by group 2 or 3 pulmonary hypertension. Continue with sildenafil. Will discharge with 40 mg grams of furosemide daily. Patient will require oxygen with activity. Patient dropped down to 84% with activity on room air. He did improve with oxygen. Patient require 4 L of oxygen with activity. Oxygen testing reviewed and patient is ambulatory in home and in the community and requires home oxygen with portability. Chronic conditions Group 2 or 3 pulmonary hypertension; on sildenafil TID patient sees pulmonary for pulmonary fibrosis. Patient will require routine follow-up as outpatient. Follow up with Dr. Billingsley. Essential hypertension - Continue home regimen as previous plus give IV hydralazine as needed for systolic blood pressure greater than 160 mmHg. Hyperlipidemia - Resume statin DM-2; of unknown control of metformin - ADA diet. FSBS q. AC/HS plus SSI. CAD; s/p stents (2014) - Noted. Resume BASA and statin as previous. DVT prophylaxis - Lovenox 40 mg sq daily plus SCD's. Discussed with the patient's at bedside.
[2024-06-05 12:40] VITALS: O2SAT 84; O2SAT 86; O2SAT 89; O2SAT 98
--- NOTE | 2024-06-05 12:53 | DS.PCM_ITS ---
Providers Date of Admission: 06/04/24 Primary Care Physician: AURE Ortega Reason For Visit: AE OF CHRONIC SYSTOLIC & DIASTOLIC CHF & RESP Diagnosis Discharge Diagnosis (1) Acute exacerbation of chronic heart failure: Status: Acute Code(s): I50.9 - Heart failure, unspecified (2) Pulmonary hypertension: Status: Acute Code(s): I27.20 - Pulmonary hypertension, unspecified (3) Respiratory insufficiency: Status: Acute Code(s): R06.89 - Other abnormalities of breathing (4) Hypoxemia: Status: Acute Code(s): R09.02 - Hypoxemia (5) Cardiomyopathy: Status: Acute Code(s): I42.9 - Cardiomyopathy, unspecified Qualifiers: Cardiomyopathy type: unspecified Qualified Code(s): I42.9 - Cardiomyopathy, unspecified (6) CAD (coronary artery disease): Status: Acute Code(s): I25.10 - Atherosclerotic heart disease of [place] coronary artery without angina pectoris Qualifiers: Coronary Disease-Associated Artery/Lesion type: [place] artery [place] vs. transplanted heart: [place] heart Associated angina: without angina Q ualified Code(s): I25.10 - Atherosclerotic heart disease of [place] coronary artery without angina pectoris (7) Stented coronary artery: Status: Acute Code(s): Z95.5 - Presence of coronary angioplasty implant and graft Plan Acute on chronic HFrEF * Chest x-ray shows pulmonary vascular congestion, though the report mentions infiltrate. With an elevated BNP of 321.5 normal white count suspect more due to heart failure rather than underlying infectious process. * Continue with IV furosemide 40 mg twice daily. Continue with losartan and metoprolol succinate. Fluid restrict 1.5 L/day * Complicated by group 2 or 3 pulmonary hypertension. Continue with sildenafil. * Will discharge with 40 mg grams of furosemide daily. * Patient will require oxygen with activity. Patient dropped down to 84% with activity on room air. He did improve with oxygen. Patient require 4 L of oxygen with activity. Oxygen testing reviewed and patient is ambulatory in home and in the community and requires home oxygen with portability. Chronic conditions * Group 2 or 3 pulmonary hypertension; on sildenafil TID patient sees pulmonary for pulmonary fibrosis. Patient will require routine follow-up as outpatient. Follow up with Dr. Billingsley. * Essential hypertension - Continue home regimen as previous plus give IV hydralazine as needed for systolic blood pressure greater than 160 mmHg. * Hyperlipidemia - Resume statin * DM-2; of unknown control of metformin - ADA diet. FSBS q. AC/HS plus SSI. * CAD; s/p stents (2014) - Noted. Resume BASA and statin as previous. DVT prophylaxis - Lovenox 40 mg sq daily plus SCD's. Discussed with the patient's at bedside. Medications at Discharge Home Medications aspirin 81 mg capsule 81 mg PO DAILY 06/04/24 losartan 50 mg tablet 50 mg PO DAILY 06/04/24 metformin 500 mg tablet,extended release 24 hr 500 mg PO DAILY 06/04/24 metoprolol succinate 50 mg tablet,extended release 24 hr 50 mg PO DAILY 06/04/24 rosuvastatin 20 mg tablet 20 mg PO DAILY 06/04/24 sildenafil (pulm.hypertension) 20 mg tablet 20 mg PO TID 06/04/24 albuterol sulfate 90 mcg/actuation aerosol inhaler 1 inh inhalation Q6H PRN shortness of breath or wheezing #6.7 grams 06/05/24 furosemide 20 mg tablet 20 mg PO DAILY #30 tabs 06/05/24 prednisone 20 mg tablet 40 mg (2 x 20 mg) PO DAILY #10 tabs 06/05/24 Hospital Course Operations None Procedures 2-D Echocardiogram Summary of Care Provided Minutes Spent on Discharge: 36 Hospital Course: Patient presents with shortness of breath and difficulty obtaining his pulse ox while having a sleep study. Patient had chest x-ray showed patchy bilateral airspace disease. Concerned that this could be underlying CHF so patient was diuresed. Patient has remained stable. So I feel much of his shortness of breath is more likely due to his pulmonary fibrosis and pulmonary hypertension. Though the patient does have reduced ejection fraction of around 40%. We advised patient taking furosemide daily moving forward and check his weights daily. Patient will require oxygen with activity where he requires 4 L to maintain pulse ox of 89%. Previous to that, patient was managing on his own he would get short of breath and then stop and that he would recover quickly. His chronic respiratory failure is most likely due to his pulmonary fibrosis and pulmonary hypertension which is likely group 3 due to his pulmonary fibrosis. Patient may also have some underlying sleep apnea which he was undergoing a polysomnogram but that had to be aborted due to hypoxia. Part of his low readings may be attributable to some possible Raynaud's. Patient chronically has difficulty having readings on his fingers. He has marked clubbing noted on his digits. He may have some component of Raynaud's so they are able to get readings on his ears. Advised him to get a pulse oximeter that has waveforms on his so that he can make sure that it is actually getting a proper reading on his digits. Patient overall is doing well and will be discharged home in stable condition. I did advise patient to follow-up with his test pilot, Dr. Billingsley, in regards to having his sleep study performed again. Advised him to call the office to see how they would want to coordinate that. Patient was to follow-up with Dr. Norman later on this month but that was post be after his sleep studies. Since his sleep study was not completed, it is unclear if he will need to keep that appointment or not. Weight / BMI Weight Weight: 106.2 kg Body Mass Index (BMI) 31.7 ABG / Lab / Microbiology Data 06/05/24 04:43 06/05/24 04:43 Laboratory: Laboratory Results - last 24 hr 06/05/24 04:43: WBC 7.4, RBC 5.56, Hgb 17.1 H, Hct 51.7, MCV 93.0, MCH 30.8, MCHC 33.1, RDW Std Deviation 45.7 H, RDW Coeff of Abilio 13.5, Plt Count 259, MPV 9.7, Immature Gran % (Auto) 0.400, Neut % (Auto) 62.6, Lymph % (Auto) 22.7, [place] % (Auto) 7.7, Eos % (Auto) 4.6, Baso % (Auto) 2.0 H, Absolute Neuts (auto) 4.6, Absolute Lymphs (auto) 1.67, Nucleated RBC % 0, Sodium 138, Potassium 3.6, Chloride 106, Carbon Dioxide 23.0, Anion Gap 9, BUN 21 H, Creatinine 0.99, Estim Creat Clear Calc 93.69, Est GFR (MDRD) Af Amer 97, Est GFR (MDRD) Non-Af 80, B UN/Creatinine Ratio 21.1 H, Glucose 136 H, Calcium 9.9, Total Bilirubin 1.00, AST 20, ALT 15 L, Alkaline Phosphatase 67, Total Protein 8.7 H, Albumin 3.3, G lobulin 5.4 H, Albumin/Globulin Ratio 0.6 L Radiography Diagnostic Testing: Radiology Impression Echocardiogram 06/04/24 03:21 Interpretation Summary The estimated ejection fraction is 55-60 %. Normal LV systolic function Moderately enlarged RV Mild TR Grade 2 diastolic dysfunction No prior echocardiogram to compare. Ordering Physician: Jon Rojas Performed By: Ian Landeros RCS Chest X-Ray 06/05/24 05:45 IMPRESSION: No significant change Electronically Signed: Nickolas Rojas MD at 8:39 EDT , D/C Instructions Discharge Diet: No restrictions Meaningful Use Info Meaningful Use Meaningful Use Diagnoses (Choose all that apply): None applicable Ischemic Stroke Statin Dosing Therapy Reference: STATIN DOSE THERAPY REFERENCE: * Patients > 75 years receive moderate or high dose statin therapy. * Patients 75 years or YOUNGER should receive HIGH intensity statin dose unless contraindicated. You will be required to document reason for non-treatment if statin daily dose does not meet guidelines. HIGH DOSE STATIN THERAPY DAILY Atorvastatin > than or = to 40 mg Rosuvastatin > than or = to 20 mg Amlodipine + Atorvastatin > than or = to 2.5/40 mg Ezetimibe + Simvastatin 10/80 mg Simvastatin 80mg Discharge Plan Admission Admit Date/Time: 06/04/24 03:17 Primary Reason for Your Visit: Heart failure Attending Provider: Steve Ricardo Primary Care Provider: Dinorah Greenwood NP Consulting Providers: Jon Rojas Instructions Additional Instructions / Restrictions: Came in with low oxygen readings but as we discussed that may be attributable to difficulty reading your oxygen numbers on your fingers due to the clubbing, the enlarged fingernails, but you may also have a component of Raynaud's. That is condition where there may be vasoconstriction, tightening of the blood vessels, that could be induced due to variety things including temperature. I am not sure that you do have Raynaud's but if you do that may be part the reason why they have difficulty getting oxygen readings on your fingers at time. I do recommend that you get a pulse oximeter with waveform on those. Those can be easily obtained through stores or [employer]. The waveform which will show shark [place] type pattern can indicate when it is picking up properly. If it is flat, that tells us that it is not picking up properly and so the reading would not be accurate. Your heart is weak based on your echocardiogram so you did receive some IV Lasix while you are here. I recommend you continue with Lasix moving forward. Please call Dr. Billingsley to see if he would want to follow-up with you later this month as you previously scheduled since you are not able to complete your sleep study or if you would like to try to get that rescheduled before seeing you in the office. But given your pulmonary fibrosis, pulmonary hypertension and heart failure, you are at risk for increasing shortness of breath so if you are short of breath at rest more so without proper recovery, contact your physician or return to the emergency room. You will also need oxygen with activity. Discharge Orders/Prescriptions Prescriptions: New furosemide 20 mg tablet 20 mg PO DAILY Qty: 30 0RF prednisone 20 mg tablet 40 mg PO DAILY Qty: 10 0RF albuterol sulfate 90 mcg/actuation HFA aerosol inhaler 1 inh inhalation Q6H PRN (Reason: shortness of breath or wheezing) Qty: 6.7 0RF Continued metoprolol succinate 50 mg tablet extended release 24 hr 50 mg PO DAILY rosuvastatin 20 mg tablet 20 mg PO DAILY metformin 500 mg tablet extended release 24 hr 500 mg PO DAILY losartan 50 mg tablet 50 mg PO DAILY aspirin 81 mg capsule 81 mg PO DAILY sildenafil (pulm.hypertension) 20 mg tablet 20 mg PO TID Rx Instructions: administer doses at least 4-6 hours apart Referrals / Follow Up: Robert Billingsley MD [Med Staff - Active Staff] - Within 2 Weeks NOT,DEFINED [Non-Staff] - Dinorah Greenwood NP, COLLABORATIVE PHYSICIAN-C [Primary Care Provider] - Within 2 Weeks Disposition Disposition (needs filled in before D/C Order can be placed): Home, Self Care Charges/Coding Visit Charges Inpatient E&M: 05264 Disch Hosp >30min
[2024-06-05 14:33] VITALS: BP 103/88; PULSE 87; RESP 16; TEMP 37; O2SAT 94
== END 2024-06-05 14:57 | disposition home or self-care (01) | DRG 291 ==
LOC: ED 02:27 → PCU 03:23
PROVIDERS: Admitting Provider Internal Medicine; Emergency Provider Emergency Medicine; PCP Nurse Practitioner Family
DX: I11.0 Hypertensive heart disease with heart failure (principal); I50.43 Acute on chronic combined systolic (congestive) and diastolic (congestive) heart failure; J96.11 Chronic respiratory failure with hypoxia; I27.23 Pulmonary hypertension due to lung diseases and hypoxia; I42.9 Cardiomyopathy, unspecified; E11.9 Type 2 diabetes mellitus without complications; J43.9 Emphysema, unspecified; J84.10 Pulmonary fibrosis, unspecified; E87.5 Hyperkalemia; G47.33 Obstructive sleep apnea (adult) (pediatric); E78.5 Hyperlipidemia, unspecified; I73.00 Raynaud's syndrome without gangrene; I25.119 Atherosclerotic heart disease of native coronary artery with unspecified angina pectoris; F17.200 Nicotine dependence, unspecified, uncomplicated; Z79.82 Long term (current) use of aspirin; Z79.84 Long term (current) use of oral hypoglycemic drugs; Z95.5 Presence of coronary angioplasty implant and graft
CPT/HCPCS: 36415; 36600; 71045; 71046; 80048; 80053; 82803; 83735; 83880; 84100; 84443; 84484; 85025; 93005; 93306; 94668; 99285; Q9957; A4216; J1940